=== PATIENT | male | born 1935 | race Caucasian/White ===

== ENCOUNTER 2021-11-18 17:04 | Emergency (ER) | payer MEDICARE, BC ==
[2021-11-18] MEDS ORDERED: hydrALAZINE 20 MG/ML SDV IM STA (17:32)
[2021-11-18] MEDS ORDERED: cloNIDine 0.1 MG Tab PO STA (17:32)
[2021-11-18] MEDS ORDERED: Enoxaparin 100 MG/1 ML Syringe SUBCUT STA (19:42)
== END 2021-11-18 20:05 | disposition home or self-care (01) ==
LOC: FB.ED 17:04
DX: M71.21 Synovial cyst of popliteal space [Baker], right knee (principal); R79.89 Other specified abnormal findings of blood chemistry; Z79.82 Long term (current) use of aspirin
CPT/HCPCS: 36415; 85379; 96372; 99283; A9270; J0360; J1650

== ENCOUNTER 2022-09-22 10:33 | Day surgery (SDC) | payer MEDICARE, BC ==
[~2022-09-22 10:33] MED LIST: Lactated Ringers 1,000 ML IV SCH; Sodium Chloride 0.9% 10 ML Syringe FLUSH PRN
[2022-09-22] MEDS ORDERED: Midazolam 1 MG/ML 2 ML SDV IV ONE (10:34)
[2022-09-22] MEDS ORDERED: acetaZOLAMIDE 500 MG Cap.ER PO ONE (12:30)
== END 2022-09-22 13:05 | disposition home or self-care (01) ==
LOC: FB.SDS 10:33
PROVIDERS: ATTEND Ophthalmology
DX: E11.36 Type 2 diabetes mellitus with diabetic cataract (principal); H61.21 Impacted cerumen, right ear; H25.813 Combined forms of age-related cataract, bilateral; H18.513 Endothelial corneal dystrophy, bilateral; H43.21 Crystalline deposits in vitreous body, right eye; H43.813 Vitreous degeneration, bilateral; H04.123 Dry eye syndrome of bilateral lacrimal glands; D31.31 Benign neoplasm of right choroid; I25.10 Atherosclerotic heart disease of native coronary artery without angina pectoris; E11.69 Type 2 diabetes mellitus with other specified complication; I15.2 Hypertension secondary to endocrine disorders; E11.59 Type 2 diabetes mellitus with other circulatory complications; E78.00 Pure hypercholesterolemia, unspecified; Z98.890 Other specified postprocedural states; Z79.899 Other long term (current) drug therapy
CPT/HCPCS: 00142-QZ; 82947; A9270-GY; J2250; J7120; V2632

== ENCOUNTER 2022-10-06 07:56 | Day surgery (SDC) | payer MEDICARE, BC ==
[2022-10-06] MEDS ORDERED: Midazolam 1 MG/ML 2 ML SDV IV ONE (07:57)
[2022-10-06] MEDS ORDERED: Sodium Chloride 0.9% 10 ML Syringe FLUSH PRN (08:00)
[2022-10-06] MEDS: Lactated Ringers 1,000 ML IV SCH (08:54)
[2022-10-06] MEDS: acetaZOLAMIDE 500 MG Cap.ER PO ONE (10:18)
== END 2022-10-06 10:48 | disposition home or self-care (01) ==
LOC: FB.SDS 07:56
PROVIDERS: ATTEND Ophthalmology
DX: E11.36 Type 2 diabetes mellitus with diabetic cataract (principal); H25.813 Combined forms of age-related cataract, bilateral; H18.513 Endothelial corneal dystrophy, bilateral; I25.10 Atherosclerotic heart disease of native coronary artery without angina pectoris; C61 Malignant neoplasm of prostate; H43.21 Crystalline deposits in vitreous body, right eye; H43.813 Vitreous degeneration, bilateral; H04.123 Dry eye syndrome of bilateral lacrimal glands; H21.81 Floppy iris syndrome; D31.31 Benign neoplasm of right choroid; E66.9 Obesity, unspecified; I10 Essential (primary) hypertension; Z79.899 Other long term (current) drug therapy; Z95.5 Presence of coronary angioplasty implant and graft; Z98.890 Other specified postprocedural states
CPT/HCPCS: 00142-QZ; 82947; A9270-GY; J2250; J7120; V2632